=== PATIENT | male | born 1955 | race Caucasian/White ===

== ENCOUNTER → 2018-10-30 16:07 | Outpatient (CLI) | payer OTHER, SELFPAY ==
[2018-11-01 13:21] LABS: RPR Screen Nonreactive (Nonreactive)
[2018-11-01 13:23] LABS: HSV 1 IgM Screen Negative (Negative); HSV 2 IGG AB < 0.90 index (< 0.90); HSV 2 IgM Screen Negative (Negative)
== END ==
PROVIDERS: PCP Family Medicine Sports Medicine; Visit Provider Family Medicine Sports Medicine
DX: Z20.2 Contact with and (suspected) exposure to infections with a predominantly sexual mode of transmission (principal)
CPT/HCPCS: 36415; 86592; 86694; 86695; 86696; 86702; 86703; 86704